=== PATIENT | male | born 1975 | race African-American/Black ===

== ENCOUNTER 2017-02-05 10:13 | Emergency (ER) | payer SELFPAY ==
[~2017-02-05] VITALS: Ht 177.8 cm; Wt 68.0 kg
--- NOTE | 2017-02-05 10:30 | NUR ---
REFUSED TO HAVE VITALS TAKEN--STATED HE FELT BETTER AND DENIED BACK PAIN--FULL CLEAR SPEECH- AMBULATED OUT OF THE ER
== END 2017-02-05 10:30 | disposition left against medical advice (07) ==
LOC: MED 10:13
DX: M54.9 Dorsalgia, unspecified (principal); Z53.21 Procedure and treatment not carried out due to patient leaving prior to being seen by health care provider